=== PATIENT | female | born 1960 | race Caucasian/White ===

== ENCOUNTER 2019-04-29 13:11 | Emergency (ER) | payer SELFPAY ==
--- NOTE | 2019-04-29 15:20 | RAD REPORT ---
EXAM DESCRIPTION: RAD - Knee Right 3 View - 04/29/2019 3:14 pm CLINICAL HISTORY: PAIN COMPARISON: No comparisons FINDINGS: Advanced osteoarthritis involves the medial joint compartment. Near [id number] is seen. No acute fracture or dislocation evident.
--- NOTE | 2019-04-29 15:22 | RAD REPORT ---
EXAM DESCRIPTION: RAD - Lumbar Spine 3 Views - 04/29/2019 3:14 pm CLINICAL HISTORY: PAIN Radiculopathy COMPARISON: No comparisons FINDINGS: Vertebral body heights appear maintained. No compression fracture noted. Grade 1 anterolis thesis of L4 on 5 is present, likely degenerative in nature. Mild facet hypertrophy is present with d isc thinning lower lumbar level. IMPRESSION: Grade 1 anterolisthesis L4 on 5 is seen, likely degenerative in etiology.
--- NOTE | 2019-04-29 15:46 | EDPHYS ---
Physician Documentation [facility] Name: Patrica Sapp Age: 58 yrs Sex: Female : 1960 Arrival Date: 04/29/2019 Time: 13:11 Bed 9 Private MD: ED Physician Jeffrey Wang HPI: 04/29 15:39 This 58 yrs old Female presents to ER via EMS with complaints of Knee Pain. marty 15:39 The patient presents with decreased range of motion, pain. The complaints affect the marty posterior aspect of right knee. Context: The problem was sustained at home. Onset: The symptoms/episode began/occurred 1 day(s) ago. Modifying factors: The symptoms are alleviated by remaining still, the symptoms are aggravated by movement, weight bearing. Associated signs and symptoms: The patient has no apparent associated signs or symptoms. Severity of symptoms: At their worst the symptoms were mild, moderate, in the emergency department the symptoms are unchanged. Historical: - Allergies: 13:29 No Known Allergies; bp - Home Meds: 13:29 None [Active]; bp - PMHx: 13:29 Fibromyalgia; bp - Immunization history:: Adult Immunizations up to date. - Social history:: Smoking status: Patient/guardian denies using tobacco. - Ebola Screening: : No symptoms or risks identified at this time. - Family history:: not pertinent. ROS: 15:39 Constitutional: Negative for fever, chills, and weight loss, Eyes: Negative for injury, marty pain, redness, and discharge, ENT: Negative for injury, pain, and discharge, Neck: Negative for injury, pain, and swelling, Cardiovascular: Negative for chest pain, palpitations, and edema, Respiratory: Negative for shortness of breath, cough, wheezing, and pleuritic chest pain, Abdomen/GI: Negative for abdominal pain, nausea, vomiting, diarrhea, and constipation, Back: Negative for injury and pain, : Negative for injury, bleeding, discharge, and swelling, Skin: Negative for injury, rash, and discoloration, Neuro: Negative for headache, weakness, numbness, tingling, and seizure, Psych: Negative for depression, anxiety, suicide ideation, homicidal ideation, and hallucinations, Allergy/Immunology: Negative for hives, rash, and allergies, Endocrine: Negative for neck swelling, polydipsia, polyuria, polyphagia, and marked weight changes, Hematologic/Lymphatic: Negative for swollen nodes, abnormal bleeding, and unusual bruising. 15:39 MS/extremity: Positive for decreased range of motion, pain, tenderness, of the posterior aspect of right knee and right knee. Exam: 15:39 Constitutional: This is a well developed, well nourished patient who is awake, alert, marty and in no acute distress. Head/Face: Normocephalic, atraumatic. Eyes: Pupils equal round and reactive to light, extra-ocular motions intact. Lids and lashes normal. Conjunctiva and sclera are non-icteric and not injected. Cornea within normal limits. Periorbital areas with no swelling, redness, or edema. ENT: Nares patent. No nasal discharge, no septal abnormalities noted. Tympanic membranes are normal and external auditory canals are clear. Oropharynx with no redness, swelling, or masses, exudates, or evidence of obstruction, uvula midline. Mucous membranes moist. Neck: Trachea midline, no thyromegaly or masses palpated, and no cervical lymphadenopathy. Supple, full range of motion without nuchal rigidity, or vertebral point tenderness. No Meningismus. Chest/axilla: Normal chest wall appearance and motion. Nontender with no deformity. No lesions are appreciated. Cardiovascular: Regular rate and rhythm with a normal S1 and S2. No gallops, murmurs, or rubs. Normal PMI, no JVD. No pulse deficits. Respiratory: Lungs have equal breath sounds bilaterally, clear to auscultation and percussion. No rales, rhonchi or wheezes noted. No increased work of breathing, no retractions or nasal flaring. Abdomen/GI: Soft, non-tender, with normal bowel sounds. No distension or tympany. No guarding or rebound. No evidence of tenderness throughout. Back: No spinal tenderness. No costovertebral tenderness. Full range of motion. Skin: Warm, dry with normal turgor. Normal color with no rashes, no lesions, and no evidence of cellulitis. Neuro: Awake and alert, GCS 15, oriented to person, place, time, and situation. Cranial nerves II-XII grossly intact. Motor strength 5/5 in all extremities. Sensory grossly intact. Cerebellar exam normal. Normal gait. Psych: Awake, alert, with orientation to person, place and time. Behavior, mood, and affect are within normal limits. 15:39 Musculoskeletal/extremity: Extremities: noted in the posterior aspect of right knee and right knee: Vital Signs: 13:29 BP 148 / 67; Pulse 65; Resp 17; Temp 97.8; Pulse Ox 99% ; Weight 104.33 kg; Height 5 bp ft. 2 in. (157.48 cm); 16:03 BP 136 / 71; Pulse 66; Resp 15; Pulse Ox 98% on R/A; rv 13:29 Body Mass Index 42.07 (104.33 kg, 157.48 cm) bp MDM: 14:14 Patient medically screened. [facility] 15:42 Data reviewed: vital signs, nurses notes, radiologic studies, plain films. [facility] 04/29 14:20 Order name: Knee Right 3 View XRAY; Complete Time: 15:38 [facility] 04/29 14:20 Order name: Lumbar Spine (3 Views) XRAY; Complete Time: 15:38 [facility] 04/29 14:21 Order name: Ice pack; Complete Time: 14:26 [facility] 04/29 15:39 Order name: Knee Immobilizer; Complete Time: 16:02 [facility] Administered Medications: No medications were administered Disposition: 04/29/19 15:45 Discharged to Home. Impression: Pain in right knee, Low back pain, Strain of muscle and tendon of back wall of thorax. - Condition is Stable. - Discharge Instructions: Back Pain, Adult, How to Use a Knee Brace, Musculoskeletal Pain, Knee Pain, Back Injury Prevention, [id number], Back Pain, Adult, [id number]. - Prescriptions for Ibuprofen 600 mg Oral Tablet - take 1 tablet by ORAL route every 8 hours As needed take with food; 21 tablet. Tylenol- Codeine #3 300-30 mg Oral Tablet - take 2 tablets by ORAL route every 6 hours As needed; 24 tablet. - Medication Reconciliation Form, Thank You Letter, Antibiotic Education, Prescription Opioid Use form. - Follow up: Private Physician; When: 2 - 3 days; Reason: Recheck today's complaints, Continuance of care, Re-evaluation by your physician. Follow up: Ryan Khan MD; When: 2 - 3 days; Reason: Recheck today's complaints, Continuance of care, Re-evaluation by your physician. - Problem is new. - Symptoms have improved. Signatures: Dispatcher [employer] EDSD Jeffrey Wang MD MD cha Peltier, Brian, RN RN bp Jaime Warren, RN RN rv Corrections: (The following items were deleted from the chart) 16:02 14:20 Urine Dipstick-Ancillary ordered. marty rv 16:03 15:45 04/29/2019 15:45 Discharged to Home. Impression: Pain in right knee; Low back rv pain; Strain of muscle and tendon of back wall of thorax. Condition is Stable. Forms are Medication Reconciliation Form, Thank You Letter, Antibiotic Education, Prescription Opioid Use. Follow up: Private Physician; When: 2 - 3 days; Reason: Recheck today's complaints, Continuance of care, Re-evaluation by your physician. Follow up: Ryan Khan; When: 2 - 3 days; Reason: Recheck today's complaints, Continuance of care, Re-evaluation by your physician. Problem is new. Symptoms have improved. marty
--- NOTE | 2019-04-29 15:46 | ER ---
Nurse's Notes [facility] Name: Patrica Sapp Age: 58 yrs Sex: Female : 1960 Arrival Date: 04/29/2019 Time: 13:11 Bed 9 Private MD: Diagnosis: Pain in right knee;Low back pain;Strain of muscle and tendon of back wall of thorax Presentation: 04/29 13:28 Presenting complaint: EMS states: [facility] AND F[facility] AT [facility], NOW WITH R KNEE AND BACK bp PAIN. NO LOC OR APPARENT TRAUMA. Transition of care: patient was not received from another setting of care. Onset of symptoms is unknown. Risk Assessment: Do you want to hurt yourself or someone else? Patient reports no desire to harm self or others. Initial Sepsis Screen: Does the patient meet any 2 criteria? No. Patient's initial sepsis screen is negative. Does the patient have a suspected source of infection? No. Patient's initial sepsis screen is negative. Care prior to arrival: None. 13:28 Method Of Arrival: EMS: [facility] bp 13:28 Acuity: JITENDRA 3 bp Historical: - Allergies: 13:29 No Known Allergies; bp - Home Meds: 13:29 None [Active]; bp - PMHx: 13:29 Fibromyalgia; bp - Immunization history:: Adult Immunizations up to date. - Social history:: Smoking status: Patient/guardian denies using tobacco. - Ebola Screening: : No symptoms or risks identified at this time. - Family history:: not pertinent. Screenin:29 Abuse screen: Denies threats or abuse. Denies injuries from another. Nutritional rv screening: No deficits noted. Tuberculosis screening: No symptoms or risk factors identified. Fall Risk None identified. Assessment: 14:29 General: Appears in no apparent distress. uncomfortable, Behavior is cooperative, rv crying. Pain: Complains of pain in right leg and head. Neuro: Level of Consciousness is awake, alert, obeys commands, Oriented to person, place, time, situation. Cardiovascular: Patient's skin is warm and dry. Respiratory: Airway is patent. GI: No signs and/or symptoms were reported involving the gastrointestinal system. : No signs and/or symptoms were reported regarding the genitourinary system. EENT: No signs and/or symptoms were reported regarding the EENT system. Derm: Skin is intact. Musculoskeletal: Reports pain in right leg. Vital Signs: 13:29 BP 148 / 67; Pulse 65; Resp 17; Temp 97.8; Pulse Ox 99% ; Weight 104.33 kg; Height 5 bp ft. 2 in. (157.48 cm); 16:03 BP 136 / 71; Pulse 66; Resp 15; Pulse Ox 98% on R/A; rv 13:29 Body Mass Index 42.07 (104.33 kg, 157.48 cm) bp ED Course: 13:11 Patient arrived in ED. as 13:29 Triage completed. bp 13:30 Arm band placed on. bp 14:10 Jaime Warren, RN is Primary Nurse. rv 14:14 Jeffrey Wang MD is Attending Physician. marty 14:30 Patient has correct armband on for positive identification. Bed in low position. Call rv light in reach. Side rails up X 1. Pulse ox on. NIBP on. 15:13 Knee Right 3 View XRAY In Process Unspecified. EDMS 15:13 Lumbar Spine (3 Views) XRAY In Process Unspecified. EDMS 15:45 Ryan Khan MD is Referral Physician. marty 16:03 No provider procedures requiring assistance completed. Patient did not have IV access rv during this emergency room visit. Administered Medications: No medications were administered Outcome: 15:45 Discharge ordered by . marty 16:03 Discharged to home via wheelchair. rv 16:03 Condition: good 16:03 Discharge instructions given to patient, Instructed on discharge instructions, follow up and referral plans. medication usage, Demonstrated understanding of instructions, follow-up care, medications, Prescriptions given X 2. 16:03 Patient left the ED. rv Signatures: Dispatcher [employer] EDVA Jeffrey Wang MD MD cha Martinez, Amelia as Peltier, Brian, RN RN bp Jaime Warren, JOSE MANUEL RN rv
[2019-04-29 16:10] VITALS: TEMP 97.8
[2019-04-29 16:12] VITALS: BP 136/71; O2SAT 98
== END 2019-04-29 16:03 | disposition home or self-care (01) ==
LOC: ER 13:11
DX: M25.561 Pain in right knee (principal); M54.5 Low back pain; S29.012A Strain of muscle and tendon of back wall of thorax, initial encounter; W01.0XXA Fall on same level from slipping, tripping and stumbling without subsequent striking against object, initial encounter; Y93.89 Activity, other specified; Y92.511 Restaurant or cafe as the place of occurrence of the external cause
CPT/HCPCS: 72100; 99284